=== PATIENT | female | born 1960 | race Caucasian/White ===

== ENCOUNTER 2021-06-21 07:11 | Inpatient (IN) | payer OTHER ==
[2021-06-16 12:21] VITALS: BMI 36.3
[2021-06-21] MEDS ORDERED: MIDAZOLAM HCL 2 MG/2 ML SINGLE DOSE VIAL ONE ×2 (09:22→10:57)
[2021-06-21] MEDS ORDERED: BUPIVACAINE LIPOSOME/PF (EXPAREL) 266 MG/20 ML VIAL ONE (09:22)
[2021-06-21] MEDS ORDERED: BUPIVACAINE HCL/PF 0.5% (5MG/ML) 10 ML VIAL ONE (09:23)
[2021-06-21] MEDS ORDERED: SODIUM CHLORIDE 0.9% P/F 10 ML VIAL IJ ONE (09:34)
[2021-06-21] MEDS ORDERED: PROPOFOL 20 ML ONE ×6 (09:54→13:38)
[2021-06-21] MEDS ORDERED: MAG HYDROX/AL HYDROX/SIMETH 30 ML UNIT-DOSE CUP PO PRN (10:26)
[2021-06-21] MEDS ORDERED: ONDANSETRON 4 MG/2 ML VIAL IVPUSH PRN ×2 (10:26→14:28)
[2021-06-21] MEDS ORDERED: LACTATED RINGERS SOLUTION 1,000 ML IV SCH (10:30)
[2021-06-21] MEDS ORDERED: VANCOMYCIN 1,000 MG VIAL (RESTRICTED TO ID ONLY) ONE (10:35)
[2021-06-21] MEDS ORDERED: BUPIVACAINE HCL 50 ML ONE (10:37)
[2021-06-21] MEDS ORDERED: BUPIVICAINE 0.25%/MORPH PF/KETOROLAC - 51ML DISP.SYRINGE IA ONE ×2 (11:37→13:46)
[2021-06-21] MEDS ORDERED: DEXAMETHASONE SOD PHOSPHATE 4 MG/1 ML VIAL ONE (11:39)
[2021-06-21] MEDS ORDERED: ONDANSETRON 4 MG/2 ML VIAL ONE (11:39)
[2021-06-21] MEDS ORDERED: ceFAZolin SODIUM 1 GM VIAL ONE ×2 (11:39→18:15)
[2021-06-21] MEDS ORDERED: GLYCOPYRROLATE 0.2 MG/1 ML VIAL ONE (11:39)
[2021-06-21] MEDS ORDERED: ePHEDrine SULFATE 50 MG/1 ML AMPULE ONE (11:45)
[2021-06-21] MEDS ORDERED: TRANEXAMIC ACID 1000 MG/10 ML VIAL ONE (13:16)
[2021-06-21] MEDS ORDERED: oxyCODONE HCL 5 MG TABLET PO PRN ×2 (14:29)
[2021-06-21] MEDS ORDERED: ACETAMINOPHEN INJECTION 100 ML IVPB ONE (14:35)
[2021-06-21] MEDS: ACETAMINOPHEN 1000 MG/100 ML VIAL (NON FORMULARY) IVPB ONE (14:38)
[2021-06-21] MEDS ORDERED: KETOROLAC TROMETHAMINE 30 MG/1 ML VIAL IVPUSH ONE (15:30)
[2021-06-21] MEDS ORDERED: CYCLOBENZAPRINE HCL 5 MG TABLET PO PRN (15:33)
[2021-06-21] MEDS ORDERED: oxyCODONE HCL 10 MG SUSTAINED ACTING TABLET PO SCH (15:45)
[2021-06-21] MEDS ORDERED: DEXTROSE 5%-WATER 100 ML IVPB ONE (18:15)
[2021-06-21] MEDS: oxyCODONE HCL 10 MG SUSTAINED ACTING TABLET PO SCH (18:23)
[2021-06-21] MEDS: CEFAZOLIN 2 GM in DEXTROSE 5%-WATER 100 ML IVPB SCH (18:24)
[2021-06-21] MEDS: LACTATED RINGERS SOLUTION 1,000 ML IV SCH (18:26)
[2021-06-21] MEDS: ACETAMINOPHEN 1000 MG/100 ML VIAL (NON FORMULARY) IVPB SCH ×2 (18:26→21:24)
[2021-06-21] MEDS: GABAPENTIN 300 MG CAPSULE PO SCH (21:19)
[2021-06-21] MEDS: SENNOSIDES/DOCUSATE COMBO (SENNA PLUS) TABLET (UD) PO SCH (21:23)
[2021-06-21] MEDS: ATORVASTATIN CA 10 MG TABLET (FP) PO SCH (21:24)
[2021-06-21] MEDS ORDERED: KETOROLAC TROMETHAMINE 30 MG/1 ML VIAL IVPUSH PRN (22:00)
[2021-06-22] MEDS ORDERED: ceFAZolin SODIUM 1 GM VIAL ONE ×2 (01:19→09:03)
[2021-06-22] MEDS ORDERED: DEXTROSE 5%-WATER 100 ML IVPB ONE ×2 (01:19→09:04)
[2021-06-22] MEDS: CEFAZOLIN 2 GM in DEXTROSE 5%-WATER 100 ML IVPB SCH ×2 (01:24→09:20)
[2021-06-22] MEDS: ACETAMINOPHEN 1000 MG/100 ML VIAL (NON FORMULARY) IVPB SCH ×2 (04:00→09:19)
[2021-06-22] MEDS: oxyCODONE HCL 10 MG SUSTAINED ACTING TABLET PO SCH ×2 (06:13→17:49)
[2021-06-22 08:04] LABS: HEMOGLOBIN 9.9 GM/dl (10.7-15.3); MCH 27.1 pg (25.7-33.7); MCHC 31.9 g/dl (32.0-36.0); MEAN CELL VOLUME 85.2 fl (80-96); MEAN PLT VOLUME 9.5 fl (7.5-11.1); PLATELET COUNT 164 10^3/uL (134-434); RBC 3.64 M/mm3 (3.60-5.2); RDW 12.7 % (11.6-15.6); WHITE BLOOD COUNT 10.1 K/mm3 (4.0-10.8)
[2021-06-22 08:08] LABS: CALCIUM 8.4 mg/dl (8.5-10); CREATININE 0.7 mg/dl (0.55-1.3)
[2021-06-22] MEDS: ASPIRIN 325 MG TABLET PO SCH ×2 (09:19→21:20)
[2021-06-22] MEDS: LOSARTAN 50MG/HCTZ 12.5MG 1 TAB PO SCH (09:19)
[2021-06-22] MEDS: MULTIVITAMINS (DAILY MVI) TABLET (FP) PO SCH (09:22)
[2021-06-22] MEDS: PANTOPRAZOLE 40 MG TABLET PO SCH (09:22)
[2021-06-22] MEDS: SENNOSIDES/DOCUSATE COMBO (SENNA PLUS) TABLET (UD) PO SCH ×2 (09:22→21:19)
[2021-06-22] MEDS: GABAPENTIN 300 MG CAPSULE PO SCH ×2 (09:34→21:19)
[2021-06-22] MEDS ORDERED: POTASSIUM CHLORIDE TABS 20 MEQ TABLET.ER (FP) PO ONE (10:45)
[2021-06-22] MEDS: ACETAMINOPHEN 1000 MG/100 ML VIAL (NON FORMULARY) IVPB ONE (17:49)
[2021-06-22] MEDS: ATORVASTATIN CA 10 MG TABLET (FP) PO SCH (21:20)
[2021-06-23] MEDS: oxyCODONE HCL 10 MG SUSTAINED ACTING TABLET PO SCH (06:36)
[2021-06-23 06:54] VITALS: TEMP 98.8
[2021-06-23] MEDS: LACTATED RINGERS SOLUTION 1,000 ML IV SCH (07:57)
[2021-06-23 08:07] LABS: HEMATOCRIT 27.8 % (32.4-45.2); HEMOGLOBIN 9.2 GM/dl (10.7-15.3); MCH 27.6 pg (25.7-33.7); MEAN CELL VOLUME 83.5 fl (80-96); MEAN PLT VOLUME 9.2 fl (7.5-11.1); PLATELET COUNT 146 10^3/uL (134-434); RBC 3.33 M/mm3 (3.60-5.2); RDW 12.3 % (11.6-15.6); WHITE BLOOD COUNT 8.8 K/mm3 (4.0-10.8)
[2021-06-23] MEDS: PANTOPRAZOLE 40 MG TABLET PO SCH (09:27)
[2021-06-23] MEDS: ASPIRIN 325 MG TABLET PO SCH (09:27)
[2021-06-23] MEDS: GABAPENTIN 300 MG CAPSULE PO SCH (09:27)
[2021-06-23] MEDS: MULTIVITAMINS (DAILY MVI) TABLET (FP) PO SCH (09:27)
[2021-06-23] MEDS: SENNOSIDES/DOCUSATE COMBO (SENNA PLUS) TABLET (UD) PO SCH (09:28)
[2021-06-23] MEDS: LOSARTAN 50MG/HCTZ 12.5MG 1 TAB PO SCH (09:28)
[2021-06-23 09:34] VITALS: BP 121/55; PULSE 72
== END 2021-06-23 13:37 | disposition home or self-care (01) | DRG 302 ==
LOC: FM/S 07:11
PROVIDERS: ADMIT Orthopaedic Surgery Sports Medicine; ATTEND Nurse Practitioner Acute Care
PROC: 0SRC0J9 Replacement of Right Knee Joint with Synthetic Substitute, Cemented, Open Approach (ICD-10-PCS; principal; 2021-06-21 09:30)
DX: M17.11 Unilateral primary osteoarthritis, right knee (principal); I10 Essential (primary) hypertension; E78.5 Hyperlipidemia, unspecified; K21.9 Gastro-esophageal reflux disease without esophagitis; E87.6 Hypokalemia
CPT/HCPCS: 36415; 73560-TC-RT-FY; 80048; 85027; 88305-TC; 88311-TC; 94760; 97010-GP; 97116-GP; 97161-GP; J0131

== ENCOUNTER 2023-03-07 04:15 | Day surgery (SDC) | payer OTHER ==
[2023-03-03 10:27] VITALS: BMI 38.4
[2023-03-07 08:28] VITALS: TEMP 98
[2023-03-07 08:59] VITALS: BP 108/70; PULSE 112; RESP 18
== END 2023-03-07 09:11 | disposition home or self-care (01) ==
LOC: JASU-ENDO 04:15
PROVIDERS: ATTEND Student in an Organized Health Care Education/Training Program
PROC: 0DBL8ZX Excision of Transverse Colon, Via Natural or Artificial Opening Endoscopic, Diagnostic (ICD-10-PCS; 2023-03-07)
PROC: 0DBH8ZX Excision of Cecum, Via Natural or Artificial Opening Endoscopic, Diagnostic (ICD-10-PCS; 2023-03-07)
PROC: 0DBH8ZX Excision of Cecum, Via Natural or Artificial Opening Endoscopic, Diagnostic (ICD-10-PCS; principal; 2023-03-07 08:00)
DX: D12.0 Benign neoplasm of cecum (principal); D12.3 Benign neoplasm of transverse colon; K55.20 Angiodysplasia of colon without hemorrhage; K57.30 Diverticulosis of large intestine without perforation or abscess without bleeding; I10 Essential (primary) hypertension
CPT/HCPCS: 88305-TC

== ENCOUNTER 2024-04-26 05:25 | Day surgery (SDC) | payer OTHER ==
[2024-04-25 11:51] VITALS: BMI 38.9
[2024-04-26 12:05] VITALS: TEMP 98
[2024-04-26 12:32] VITALS: BP 111/57; PULSE 49; RESP 14
== END 2024-04-26 12:42 | disposition home or self-care (01) ==
LOC: JASU-ENDO 05:25
PROVIDERS: ATTEND Student in an Organized Health Care Education/Training Program
PROC: 0DB78ZX Excision of Stomach, Pylorus, Via Natural or Artificial Opening Endoscopic, Diagnostic (ICD-10-PCS; 2024-04-26)
PROC: 0DB68ZX Excision of Stomach, Via Natural or Artificial Opening Endoscopic, Diagnostic (ICD-10-PCS; principal; 2024-04-26 11:00)
DX: K29.00 Acute gastritis without bleeding (principal)
CPT/HCPCS: 88305-TC; 88342-TC

== ENCOUNTER 2024-05-28 08:30 | Day surgery (SDC) | payer OTHER ==
[2024-05-22 16:14] VITALS: BMI 38.9
[2024-05-28] MEDS ORDERED: ONDANSETRON 4 MG/2 ML VIAL IVPUSH PRN ×2 (11:21→16:01)
[2024-05-28] MEDS ORDERED: BUPIVACAINE LIPOSOME/PF (EXPAREL) 266 MG/20 ML VIAL ONE (12:56)
[2024-05-28] MEDS ORDERED: BUPIVACAINE HCL/PF 0.5% (5MG/ML) 10 ML VIAL ONE (12:57)
[2024-05-28] MEDS ORDERED: MIDAZOLAM HCL 2 MG/2 ML SINGLE DOSE VIAL ONE ×2 (12:57→14:04)
[2024-05-28] MEDS ORDERED: ACETAMINOPHEN INJECTION 100 ML ONE (12:57)
[2024-05-28] MEDS ORDERED: PROPOFOL 20 ML ONE ×3 (13:23→14:38)
[2024-05-28] MEDS ORDERED: VANCOMYCIN 1,000 MG VIAL (RESTRICTED TO ID ONLY) ONE ×2 (13:27→13:33)
[2024-05-28] MEDS ORDERED: TRANEXAMIC ACID 1000 MG/10 ML VIAL ONE ×2 (13:43→14:00)
[2024-05-28] MEDS ORDERED: ONDANSETRON 4 MG/2 ML VIAL ONE (13:43)
[2024-05-28] MEDS ORDERED: ceFAZolin SODIUM 1 GM VIAL ONE ×2 (13:43)
[2024-05-28] MEDS ORDERED: DEXAMETHASONE SOD PHOSPHATE 4 MG/1 ML VIAL ONE (13:43)
[2024-05-28] MEDS ORDERED: KETOROLAC TROMETHAMINE 30 MG/1 ML VIAL ONE (13:44)
[2024-05-28] MEDS ORDERED: BUPIVICAINE 0.25%/MORPH PF/KETOROLAC - 51ML DISP.SYRINGE IA ONE (14:00)
[2024-05-28] MEDS: VANCOMYCIN 1,000 MG VIAL (RESTRICTED TO ID ONLY) IVPB ONE (15:10)
[2024-05-28] MEDS: BUPIVICAINE 0.25%/MORPH PF/KETOROLAC - 51ML DISP.SYRINGE IA ONE (15:19)
[2024-05-28] MEDS ORDERED: MAG HYDROX/AL HYDROX/SIMETH 30 ML UNIT-DOSE CUP PO PRN (16:01)
[2024-05-28] MEDS: LACTATED RINGERS SOLUTION 1,000 ML IV SCH ×2 (16:46→18:07)
[2024-05-28] MEDS: ACETAMINOPHEN 325 MG TABLET (FP) PO PRN (20:35)
[2024-05-28] MEDS: SENNOSIDES/DOCUSATE COMBO (SENNA PLUS) TABLET (UD) PO SCH (21:17)
[2024-05-28] MEDS: GABAPENTIN 300 MG CAPSULE PO SCH (21:17)
[2024-05-28] MEDS: CEFAZOLIN SODIUM 2 GM in DEXTROSE 5%-WATER 100 ML IVPB SCH (21:17)
[2024-05-29] MEDS: oxyCODONE HCL 5 MG TABLET PO PRN ×2 (02:52→12:42)
[2024-05-29 08:14] LABS: HEMATOCRIT 34.2 % (32.4-45.2); MCH 26.9 pg (25.7-33.7); MCHC 32.2 g/dl (32.0-36.0); MEAN CELL VOLUME 83.6 fl (80-96); MEAN PLT VOLUME 9.2 fl (7.5-11.1); PLATELET COUNT 167.7 10^3/uL (134-434); RBC 4.09 10^6/uL (3.60-5.2); RDW 14.5 % (11.6-15.6); WHITE BLOOD COUNT 12.3 10^3/uL (4.0-10.8)
[2024-05-29 08:25] LABS: CALCIUM 9.2 mg/dl (8.5-10.1)
[2024-05-29] MEDS: MULTIVITAMINS (DAILY MVI) TABLET (FP) PO SCH (09:09)
[2024-05-29] MEDS: PANTOPRAZOLE 40 MG TABLET PO SCH (09:09)
[2024-05-29] MEDS: APIXABAN 5 MG TABLET PO SCH (09:09)
[2024-05-29 10:11] VITALS: BP 113/52; PULSE 59; RESP 18; TEMP 98.1
== END 2024-05-29 13:31 | disposition home or self-care (01) ==
LOC: FASU 08:30 → FASUSAT 08:30 → SUATTDRO 08:30 → FM/S 17:14 → FASUSAT 05-29 13:31
PROC: 8E0Y0CZ Robotic Assisted Procedure of Lower Extremity, Open Approach (ICD-10-PCS; 2024-05-28)
PROC: 0SRD0JA Replacement of Left Knee Joint with Synthetic Substitute, Uncemented, Open Approach (ICD-10-PCS; principal; 2024-05-28 13:59)
DX: M17.12 Unilateral primary osteoarthritis, left knee (principal)
CPT/HCPCS: 20985; 27447; C1776; S2900; 36415; 73560-TC-LT-FY; 80048; 85027; 88305-TC; 88311-TC; 94760; 97010-GP; 97116-GP; 97161-GP; J0131